=== PATIENT | female | born 1980 | race American Indian/Alaskan Native ===

== ENCOUNTER 2019-01-24 02:41 | Emergency (ER) | payer SELFPAY ==
--- NOTE | 2019-01-24 09:34 | Emergency Department Report ---
ED Palpitations HPI - General Chief Complaint: Arrhythmia/Palpitations Stated Complaint: PALPULATION,BACK PAIN,HEADACHE Source: patient, EMS Mode of arrival: Ambulatory Limitations: No Limitations - History of Present Illness Initial Comments: The 39-year-old -[place] female. She states that she woke up around 1:30 this morning to go to the bathroom and felt palpitations, chest tightness and pressure on her right lateral mid. Patient to one baby aspirin. She states she had no relief and she called 911. Patient also report 9 PM last night she had similar symptoms but they were relieved immediately after she took a baby aspirin. She denies nausea vomiting abdominal pain fever chills or cough. On exam patient is pain free with no current palpitations. Patient also reports recently being started on Metoprolol. She discontinued Metoprolol on her own on Saturday. She felt like she was having a reaction to the Metoprolol her symptoms were headache and swelling to the roof of her mouth. MD Complaint: palpitations -: Sudden Context: awoke with symptoms Associated Symptoms: other (chest tightness). denies: shortness of breath, syncope, near-syncope, nausea/vomiting, diaphoresis, cough, parasthesias, feeling of impending doom Treatments Prior to Arrival: other (ASA 81 MG) - Related Data Previous Rx's Medication Instructions Recorded Last Taken Type Ferrous Sulfate [Feosol 325mg] 325 mg PO BID #60 tablet 07/26/13 Unknown Rx Glycerin Adult 2 gm 3 gm FL TID PRN #14 supp.rect 07/26/13 Unknown Rx Metoprolol [Lopressor] 25 mg PO DAILY #30 tablet 07/26/13 Unknown Rx Polyethylene Glycol 3350 [Miralax] 17 gm PO DAILY #10 powder 07/26/13 Unknown Rx Allergies Allergy/AdvReac Type Severity Reaction Status Date / Time Penicillins Allergy Unknown Verified 07/24/13 13:00 ED Review of Systems ROS: Stated complaint: PALPULATION,BACK PAIN,HEADACHE Other details as noted in HPI Comment: All other systems reviewed and negative Constitutional: no symptoms reported Cardiovascular: palpitations, other (CHEST TIGHTNESS) Endocrine: no symptoms reported Gastrointestinal: denies: abdominal pain, nausea, vomiting, diarrhea Skin: denies: rash, lesions ED Past Medical Hx - Past Medical History Previous Medical History?: Yes Hx Congestive Heart Failure: No Hx Diabetes: No Hx Asthma: No Hx COPD: No Additional medical history: palpations - Surgical History Past Surgical History?: Yes 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: 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/ 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 - Social History Smoking Status: Never Smoker Substance Use Type: None - Medications Home Medications: Home Medications Medication Instructions Recorded Confirmed Last Taken Type Ferrous Sulfate [Feosol 325mg] 325 mg PO BID #60 tablet 07/26/13 Unknown Rx Glycerin Adult 2 gm 3 gm FL TID PRN #14 supp.rect 07/26/13 Unknown Rx Metoprolol [Lopressor] 25 mg PO DAILY #30 tablet 07/26/13 Unknown Rx Polyethylene Glycol 3350 [Miralax] 17 gm PO DAILY #10 powder 07/26/13 Unknown Rx ED Physical Exam - General Limitations: No Limitations General appearance: alert, in no apparent distress - Head Head exam: Present: atraumatic, normal inspection - Eye Eye exam: Present: normal appearance - ENT ENT exam: Present: normal exam - Neck Neck exam: Present: normal inspection, full ROM - Respiratory Respiratory exam: Present: normal lung sounds bilaterally - Cardiovascular Cardiovascular Exam: Present: regular rate, normal rhythm - GI/Abdominal GI/Abdominal exam: Present: soft, normal bowel sounds. Absent: distended, tenderness, guarding, rebound - Rectal Rectal exam: Present: deferred - Extremities Exam Extremities exam: Present: normal inspection - Back Exam Back exam: Present: normal inspection - Neurological Exam Neurological exam: Present: alert, oriented X3 - Psychiatric Psychiatric exam: Present: normal affect - Skin Skin exam: Present: warm, dry, intact, normal color ED Course Vital Signs 01/24/19 01/24/19 01/24/19 02:47 08:14 08:50 Temperature 98.3 F 98.6 F Pulse Rate 102 H 89 116 H Respiratory 12 18 17 Rate Blood Pressure 112/68 Blood Pressure 102/62 [Left] O2 Sat by Pulse 100 99 Oximetry 01/24/19 01/24/19 01/24/19 08:53 09:00 09:15 Temperature Pulse Rate 98 H 81 93 H Respiratory 18 12 12 Rate Blood Pressure 95/41 95/41 Blood Pressure 93/54 [Left] O2 Sat by Pulse 95 100 100 Oximetry 01/24/19 01/24/19 01/24/19 09:33 09:45 10:00 Temperature Pulse Rate 100 H 83 82 Respiratory 16 14 12 Rate Blood Pressure 95/41 95/41 94/43 Blood Pressure [Left] O2 Sat by Pulse 100 100 Oximetry 01/24/19 01/24/19 10:15 10:30 Temperature Pulse Rate 110 H 91 H Respiratory 16 15 Rate Blood Pressure 95/41 90/41 Blood Pressure [Left] O2 Sat by Pulse 100 100 Oximetry ED Medical Decision Making - Lab Data Result diagrams: 01/24/19 09:13 01/24/19 09:13 - EKG Data EKG shows normal: sinus rhythm (Rate 99) - EKG Data Interpretation: unchanged when compared t (07/25/13) - Radiology Data Radiology results: report reviewed Chest X-ray IMPRESSION: 1. The lungs are hyperinflated, but otherwise clear. No significant interval change from prior exam. - Medical Decision Making Patient has been stable throughout this hospital stay. Review of prior medical records revealed a stress test that was completed 07/25/2013 that was negative . Ekg NSR. Chest xray no acute findings. Labs no acute findings. Chronic anemia. Plan of care results and discharge plans discussed with Dr. Jacqueline Alvarez. Critical Care Time: No Critical care attestation.: If time is entered above; I have spent that time in minutes in the direct care of this critically ill patient, excluding procedure time. ED Disposition Clinical Impression: Palpitations Disposition: -01 TO HOME OR SELFCARE Condition: Stable Instructions: Palpitations (ED) Additional Instructions: Follow up with Dr. Thai Santana your issuing operator at [facility] to discuss resuming Metoprolol or starting another medication. Rest stay hydrated by drinking 6-8 cups of water daily. I suggest you also take daily iron tab for your chronic anemia. If your symptoms worsens and you cannot get in to see your doctor return to the ER. Referrals: LORA HONG MD [Primary Care Provider] - 3-5 Days Time of Disposition: 11:40
[2019-01-24 09:46] LABS: Alanine Aminotransferase 11 units/L (7-56); Albumin 4.1 g/dL (3.9-5); BUN/Creatinine Ratio 17; Blood Urea Nitrogen 10 mg/dL (7-17); Calcium 8.8 mg/dL (8.4-10.2); Hemolysis Index 1
[2019-01-24 09:47] LABS: Hematocrit 33.7 % (30.3-42.9); Hemoglobin 10.4 gm/dl (10.1-14.3); Mean Corpuscular HGB Conc 31 % (30-34); Platelet Count 237 K/mm3 (140-440); Red Blood Count 4.86 M/mm3 (3.65-5.03); Red Cell Distribution Width 18.8 % (13.2-15.2)
--- NOTE | 2019-01-24 09:52 | XRay Report ---
CHEST 2 VIEWS INDICATION / CLINICAL INFORMATION: palpitations. COMPARISON: 07/24/2013 FINDINGS: SUPPORT DEVICES: None. HEART / MEDIASTINUM: No significant abnormality. LUNGS / PLEURA: Both lungs are hyperinflated but otherwise clear. No pneumothorax. ADDITIONAL FINDINGS: No significant additional findings. IMPRESSION: 1. The lungs are hyperinflated, but otherwise clear. No significant interval change from prior exam. Signer Name: Olimpia Goddard MD Signed: 01/24/2019 9:48 AM Workstation Name: [id number]
[2019-01-24 09:53] LABS: Mean Corpuscular Volume 69 fl (79-97)
[2019-01-24 10:44] LABS: Basophils % (Manual) 0 % (0.0-1.8); Total Cells Counted 100
[2019-01-24 10:45] LABS: Hypochromasia Few; Target Cells Few
[2019-01-24 10:46] LABS: Platelet Estimate Consistent w Auto
[2019-01-24 12:21] VITALS: BP 92/54
== END 2019-01-24 12:22 | disposition home or self-care (01) ==
LOC: ED 02:41
DX: R00.2 Palpitations (principal); R07.89 Other chest pain; Z88.0 Allergy status to penicillin; Z79.899 Other long term (current) drug therapy
CPT/HCPCS: 36415; 71046; 80053; 84484; 85007; 85025; 93005; 93010